=== PATIENT | male | born 1955 | race Caucasian/White ===

== ENCOUNTER → 2022-05-12 | Outpatient (CLI) | payer MEDICARE, SELFPAY ==
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
--- NOTE | 2022-05-12 17:38 | MRI_ITS ---
EXAM: MR HEAD WITHOUT AND WITH INTRAVENOUS CONTRAST CLINICAL INDICATION: BILATERAL PROPTOSIS ACUTE -- ATTN ORBITS Technologist Notes Other, EYE IRRITATION AND SWELLING OF BOTH EYES WITH RIGHT EYE WORSE THAN LEFT. NO INJURY OR PAIN. ORBIT XRAYS ALSO TODAY FOR CLEARANCE PRIOR TO MRI. NO OTHER PREVIOUS IMAGING. TECHNIQUE: Multiplanar and multisequence MR images of the brain were obtained without and with intravenous contrast. This report was created using [employer] report generation technology. CONTRAST: IV CLARISCAN 20mL COMPARISON: None. FINDINGS: BRAIN AND EXTRA-AXIAL SPACES: Unremarkable. No intra- or extra-axial hemorrhage. No evidence of acute infarct. No intracranial mass or mass effect. There is preservation of the lebron/white matter interface. Posterior fossa structures are unremarkable. Ventricles are appropriate for age. No hydrocephalus. Basal cisterns are patent. SELLA: Unremarkable. Normal sella turcica, pituitary gland, infundibular stalk, optic chiasm and hypothalamus. AUDITORY SYSTEM: Unremarkable. The internal auditory canals are patent. BONES/JOINTS: Unremarkable. No discrete lytic or blastic abnormalities. SINUSES: Unremarkable as visualized. Clear. MASTOID AIR CELLS: Unremarkable as visualized. Clear. ORBITS: There is diffuse enlargement of the bilateral lacrimal glands. It appears worse on the right than the left. This is causing orbital proptosis bilaterally. VASCULATURE: Unremarkable as visualized. Normal flow voids in the major intracranial circulation. MRI/Brain W/WO Contrast IMPRESSION: Abnormal bilateral lacrimal glands. Differential includes: IgG4-related sclerosing disease (IgG4-RSD), lymphoma or dacryoadenitis. Electronically Signed: Pablo Viveros MD at 21:02 [facility] ,
[2022-05-12 18:00] LABS: CREATININE FINGERSTICK < 0.9 mg/dL (0.70-1.30); EGFR FINGERSTICK > 60.0000 mL/min (>60)
== END | disposition home or self-care (01) ==
PROVIDERS: PCP Family Medicine; Visit Provider Ophthalmology
DX: H05.20 Unspecified exophthalmos (principal)
CPT/HCPCS: 70030; 70553; A9575